=== PATIENT | male | born 1960 | race Caucasian/White ===

== ENCOUNTER 2018-07-11 01:08 | Inpatient (IN) | payer MEDICAID ==
[~2018-07-11] VITALS: Ht 170.2 cm; Wt 71.2 kg
[2018-07-11] MEDS ORDERED: ONDANSETRON HCL 4MG/2ML INJ IV STA (01:24)
[2018-07-11] MEDS ORDERED: FAMOTIDINE 20MG/2ML VIAL IV STA (01:24)
[2018-07-11] MEDS ORDERED: MORPHINE SULFATE 4 MG/ML CPJ (NOT FOR IM USE) IV STA (01:24)
[2018-07-11] MEDS ORDERED: SODIUM CHLORIDE 0.9% 1,000 ML IV ONE (01:24)
[2018-07-11] MEDS ORDERED: DIATR MEGLU/DIATRIZOATE SOLN 30ML ONE (01:41)
[2018-07-11 02:03] LABS: CHLORIDE 103 mEq/L (98-107); HEMOGLOBIN. 13.6 g/dL (14.0-18.0); MEAN CORPUSCULAR HEMOGLOBIN 28.4 pg (28.0-32.0); MEAN CORPUSCULAR VOLUME 83.8 fL (80.0-94.0); MEAN PLATELET VOLUME 7.7 fl (7.4-10.4); PLATELET 398 x1000/uL (130-400); RED BLOOD CELL COUNT 4.78 mill/uL (4.7-6.1); RED CELL DISTRIBUTION WIDTH 14.6 % (11.6-14.6)
[2018-07-11 03:01] LABS: PLATELET ESTIMATE NORMAL
[2018-07-11 05:57] LABS: CLARITY URINE TURBID (CLEAR); COLOR URINE ORANGE (YELLOW); KETONES URINE 2+ (NEGATIVE); LEUKOCYTE ESTERASE URINE 3+ (NEGATIVE); NITRITE URINE POSITIVE (NEGATIVE); OCCULT BLOOD URINE 3+ (NEGATIVE); PROTEIN URINE 3+ (NEGATIVE); SPECIFIC GRAVITY URINE 1.024 (1.005-1.030)
[2018-07-11] MEDS ORDERED: IOHEXOL-300 100 ML BOTTLE ONE (06:34)
[2018-07-11] MEDS ORDERED: CEFTRIAXONE 1 G PREMIX 50 ML IV ONE (07:45)
[2018-07-11] MEDS ORDERED: MORPHINE SULFATE 2 MG/ML CPJ (NOT FOR IM USE) IV PRN (11:00)
[2018-07-11 11:15] VITALS: BP 117/69
[2018-07-11] MEDS ORDERED: CALC-823 PO (11:26)
[2018-07-11] MEDS ORDERED: GABA-529 MT (11:26)
[2018-07-11] MEDS ORDERED: HYDR-4001 MT (11:26)
[2018-07-11 11:57] VITALS: BP 117/64
[2018-07-11 12:00] VITALS: BP 118/70
[2018-07-11] MEDS: DEXT 5%/0.45% NACL KCL 10MEQ/L 1,000 ML IV SCH ×2 (12:00→22:42)
[2018-07-11 16:00] VITALS: BP 121/68
[2018-07-11 20:00] VITALS: BP 111/63
[2018-07-11] MEDS: FAMOTIDINE 20MG/2ML VIAL IV SCH (22:06)
[2018-07-12] VITALS: BP 102/64
[2018-07-12 04:00] VITALS: BP 105/59
[2018-07-12 08:00] VITALS: BP 101/55
[2018-07-12] MEDS: FAMOTIDINE 20MG/2ML VIAL IV SCH ×2 (08:18→20:51)
[2018-07-12] MEDS: DEXT 5%/0.45% NACL KCL 10MEQ/L 1,000 ML IV SCH ×3 (08:18→23:47)
[2018-07-12 12:00] VITALS: BP 96/60
[2018-07-12 16:00] VITALS: BP 109/65
[2018-07-12 20:00] VITALS: BP 100/61
[2018-07-13] VITALS: BP 102/56
[2018-07-13 04:00] VITALS: BP 100/53
[2018-07-13 07:00] LABS: HEMATOCRIT. 31.8 % (42.0-52.0); HEMOGLOBIN. 10.7 g/dL (14.0-18.0); MEAN CORPUSCULAR HEMOGLOBIN 27.9 pg (28.0-32.0); MEAN CORPUSCULAR VOLUME 83.3 fL (80.0-94.0); MEAN PLATELET VOLUME 7.8 fl (7.4-10.4); PLATELET 226 x1000/uL (130-400); RED BLOOD CELL COUNT 3.82 mill/uL (4.7-6.1); RED CELL DISTRIBUTION WIDTH 14.1 % (11.6-14.6)
[2018-07-13 08:00] VITALS: BP 93/60
[2018-07-13 08:29] LABS: CHLORIDE 109 mEq/L (98-107)
[2018-07-13 08:36] LABS: PHOSPHORUS 3.4 mg/dL (2.5-4.9)
[2018-07-13] MEDS: FAMOTIDINE 20MG/2ML VIAL IV SCH (09:10)
[2018-07-13] MEDS: DEXT 5%/0.45% NACL KCL 10MEQ/L 1,000 ML IV SCH (09:10)
[2018-07-13 12:00] VITALS: BP 99/64
[2018-07-13 14:23] VITALS: BP 99/66
[2018-07-13 22:11] LABS: PLATELET ESTIMATE NORMAL
== END 2018-07-13 15:20 | disposition home or self-care (01) | DRG 247 ==
LOC: ER 01:08 → 6EST 08:00 → EDBEDREQ 08:01 → EDBEDREQTM 08:01 → ENRESERV 09:17
PROVIDERS: ADMIT Internal Medicine; ATTEND Internal Medicine
DX: K56.690 Other partial intestinal obstruction (principal); E87.2 Acidosis; B96.5 Pseudomonas (aeruginosa) (mallei) (pseudomallei) as the cause of diseases classified elsewhere; N39.0 Urinary tract infection, site not specified; N40.0 Benign prostatic hyperplasia without lower urinary tract symptoms; Z85.048 Personal history of other malignant neoplasm of rectum, rectosigmoid junction, and anus; Z93.3 Colostomy status; Z85.038 Personal history of other malignant neoplasm of large intestine; B96.20 Unspecified Escherichia coli [E. coli] as the cause of diseases classified elsewhere
CPT/HCPCS: 36415; 71045; 74018; 74177; 80048; 83605; 83735; 84100; 87077; 87186; 96374; 99285; J0696; J2270; J2405; J3490; J7030; Q9963; Q9967